=== PATIENT | female | born 1995 | race Caucasian/White ===

== ENCOUNTER 2023-10-03 18:03 | Emergency (ER) | payer BC, SELFPAY ==
[2023-10-03 18:07] VITALS: BP 141/98
[2023-10-03 18:24] LABS: % Basophils 0.6 % (0-2); % Eosinophils 2.6 % (0-6); % Immature Granulocytes 0.3 % (0-0.5); % Lymphocytes 25.3 % (20.5-51.1); % Monocytes 7.7 % (1.7-9.3); % Neutrophils 63.5 % (42.2-75.2); Absolute Basophils 0.1 10^3/uL (0-0.2); Absolute Eosinophils 0.2 10^3/uL (0-0.7); Absolute Lymphocytes 2.2 10^3/uL (1.2-3.4); Absolute Monocytes 0.7 10^3/uL (0.1-0.6); Absolute Neutrophils 5.5 10^3/uL (1.4-6.5); Hematocrit 38.4 % (37.0-47.0); Hemoglobin 13.8 g/dL (12.0-16.0); Mean Corp Hgb Conc. 35.9 g/dL (33.0-37.0); Mean Corpuscular Hgb 30.7 pg (27.0-31.0); Mean Corpuscular Volume 85.5 fL (81.0-99.0); Mean Platelet Volume 9.7 fL (7.4-10.4); Nucleated Red Blood Cells % 0 %; Platelet Count 219 10^3/uL (130-400); Red Blood Cell Count 4.49 10^6/uL (4.20-5.40); Red Cell Dist. Width 11.9 % (11.5-14.5); White Blood Cell Count 8.7 10^3/uL (4.8-10.8)
[2023-10-03 18:57] LABS: Beta HCG Quantitative 123.47 mIU/ml
--- NOTE | 2023-10-03 20:59 | ED.GENMED ---
History of Present Illness
General
Chief Complaint: Problems
Source: patient
Exam Limitations: none
Time Seen by Provider: 10/03/23 19:54
Nursing documentation reviewed up to this point in time: agreed with
Travel History
Have you had any contact with someone who has COVID-19?: No
Do you have any symptoms of coronavirus? Fever > 100 degrees, chills, cough, shortness of breath, sore throat, loss of taste or smell, muscle aches, or headache?: No
History of Present Illness
History of Present Illness:
Patient states she is 6 weeks . 2 days ago she noticed brown disharge intermittently. Today she reports bleeding and lower abdominal cramping. Brought to ED by spouse for eval. . Denies fever/chills, n/v/d. No recent illness. Has
appt on with OB.
Past History
Past History
ED Past Medical History: Other (Lupus)
Review of Systems
Review of Systems
Allergies reviewed?: Yes
All Other Systems: ROS reviewed and negative except as documented in HPI and ROS
Constitutional: Reports no symptoms
EENT: Reports no symptoms
Respiratory: Reports no symptoms
Cardiac: Reports no symptoms
ABD/GI: Reports no symptoms
: Reports bleeding (vaginal bleeding)
Musculoskeletal: Reports no symptoms
Skin: Reports no symptoms
Neurological: Reports no symptoms
Psychiatric: Reports no symptoms
Phy Exam
General Physical Exam
General Presentation: well appearing and no apparent distress
General age: appears stated age
General Skin: warm and dry
General Habitus: normal
General Mental: alert
Gastrointestinal Exam
Gastrointestinal Exam: normal bowel sounds, non tender, soft, no organomegaly and non distended
Genitourinary Exam Female
Exam Female: other (Deferred for pelvic US)
Musculoskeletal Exam
Musculoskeletal Exam: full ROM and neuro vasc intact
Skin Exam
Skin Exam: normal color, warm/dry and no rash
Psychiatric Exam
Psychiatric Exam: normal mood/affect
Course
Orders/Labs/Results
Orders:
Orders
10/03/23 18:19
Type+Screen Urgent
CBC/With Diff [Complete Blood Count/With Diff] Urgent
HCG, Beta Quantitative [Beta HCG Quantitative] Urgent
Is this a screen?: No
10/03/23 18:50
US W Transvaginal Urgent
Reason For Exam: 6 weeks vaginal bleeding
Abnormal Lab Results
10/03/23
18:19
Absolute Monos (auto) 0.7 H 10^3/uL
(0.1-0.6)
10/03/23 18:19
Vital Signs
Initial and Last Documented VS:
Initial Vital Signs
Temp Pulse Resp BP Pulse Ox
98.7 F 98 20 141/98 97
10/03/23 18:07 10/03/23 18:07 10/03/23 18:07 10/03/23 18:07 10/03/23 18:07
Last Documented Vital Signs
Temp Pulse Resp BP Pulse Ox
98.7 F 98 20 141/98 97
10/03/23 18:07 10/03/23 18:07 10/03/23 18:07 10/03/23 18:07 10/03/23 18:07
Information
Weeks gestation: Weeks: (6)
Location: N/A
*Critical Care Note
Total Time (30-74mins, 75-104mins- exclusive of procedures): Not Applicable
Update Note
Update Note:
HCG low at 123, US without evidence of intrauterine sac. Discussed lab and US findings with patient and spouse. She will be discharged home and will follow up wsith her OB in AM. Will need repeat HCG. Patient is agreeable to plan.
ED Attending Note
-
Portions of this chart may have been created with voice recognition software.� Occasional wrong word or��sound alike� substitutions may have occurred due to the inherent limitations of voice recognition software.
Discharge Plan
Departure
Patient Disposition: Home (Routine Discharge)
Date of Disposition: 10/03/23
Time of Disposition: 20:23
Patient with high blood pressure during this ER visit?: No
Condition: Good
Covid-19: Not Applicable
Discharge Problem:
Miscarriage
Instructions: Miscarriage (DC)
Activity Restrictions/Additional Instructions:
As we discussed, you will need to have a repeat HCG level this week. Please call your OB in the AM to schedule your appointment. Return to the emergency department immediately for increasing pain, weakness, dizziness, or for any further concerns.
Interventions
Interventions:
*Risk Screen - Suicide Last Done: 10/03/23 20:37
*General Assessment Last Done: 10/03/23 20:00
*Neglect/Abuse Screening Last Done: 10/03/23 20:00
*ED COVID-19 Vaccine History Last Done: 10/03/23 20:00
*Nursing Disposition Last Done: 10/03/23 20:38
ED-Female Genitourinary Assessment Last Done: 10/03/23 20:00
Discharge Date and Time
Discharge Date/Time: 10/03/23 20:38
Print Language: ETHIOPIAN
== END 2023-10-03 20:38 | disposition home or self-care (01) ==
LOC: EMR 18:03
PROVIDERS: Emergency Medicine; EMERGENCY PHYSICIAN Emergency Medicine
DX: O03.9 Complete or unspecified spontaneous abortion without complication (principal); Z3A.01 Less than 8 weeks gestation of pregnancy
CPT/HCPCS: 99284; 76801; 76817; 84702; 85025; 86850; 86900; 86901